=== PATIENT | female | born 1995 | race Caucasian/White ===

== ENCOUNTER → 2017-04-15 | Outpatient (CLI) | payer BC ==
[~2017-04-15] MED LIST: PRENTAB26 PO
== END | disposition home or self-care (01) ==
LOC: C.LAB1850 16:33
PROVIDERS: ATTEND Physician Assistant
DX: Z01.419 Encounter for gynecological examination (general) (routine) without abnormal findings (principal); N91.2 Amenorrhea, unspecified

== ENCOUNTER → 2017-04-15 | Outpatient (CLI) | payer BC | END | disposition home or self-care (01) | LOC: C.PAPS 17:38 | PROVIDERS: ATTEND Physician Assistant | DX: Z01.411 Encounter for gynecological examination (general) (routine) with abnormal findings (principal); R87.610 Atypical squamous cells of undetermined significance on cytologic smear of cervix (ASC-US) ==

== ENCOUNTER → 2017-05-06 | Outpatient (CLI) | payer BC | END | disposition home or self-care (01) | LOC: C.LABMFLN 14:24 | PROVIDERS: ATTEND Physician Assistant | DX: N91.2 Amenorrhea, unspecified (principal) ==

== ENCOUNTER → 2017-07-13 | Outpatient (CLI) | payer BC ==
[2017-07-13 18:03] LABS: FOLLICLE STIMULAT HORMONE 4.92 IU/L; PROLACTIN 9.55 ng/mL
== END | disposition home or self-care (01) ==
LOC: C.LAB1850 16:42
PROVIDERS: ATTEND Obstetrics & Gynecology
DX: N91.2 Amenorrhea, unspecified (principal)

== ENCOUNTER → 2017-10-27 | Outpatient (CLI) | payer BC | END | disposition home or self-care (01) | LOC: C.LABSPEC 10:43 | PROVIDERS: ATTEND Obstetrics & Gynecology | DX: Z34.81 Encounter for supervision of other normal pregnancy, first trimester (principal) ==

== ENCOUNTER → 2017-11-02 | Outpatient (CLI) | payer BC ==
[2017-11-02 16:59] LABS: BASO % 0.2 %; BASO ABS # 0.02 K/uL (0-0.2); EOS % 1.1 %; EOS ABS # 0.09 K/uL (0-0.5); HEMATOCRIT 42.7 % (37-47); HEMOGLOBIN 15.2 g/dL (12.0-16.0); IG# 0.02 K/uL (0.00-0.02); LYMPH % 31.6 %; LYMPH ABS # 2.65 K/uL (1.2-3.4); MEAN CORPUSCULAR HEMOGLOBIN 31.3 pg (25-34); MEAN CORPUSCULAR HGB CONC 35.6 g/dl (32-36); MEAN PLATELET VOLUME 11.1 fL (7.4-10.4); MONO ABS # 0.92 K/uL (0.11-0.59); NEUT % 55.9 %; NEUT ABS # 4.69 K/uL (1.4-6.5); PLATELET COUNT 276 K/uL (130-400); RED CELL DISTRIBUTION WIDTH CV 12.4 % (11.5-14.5); RED CELL DISTRIBUTION WIDTH SD 39.9 fL (36.4-46.3); WHITE BLOOD COUNT 8.39 K/uL (4.8-10.8)
== END | disposition home or self-care (01) ==
LOC: C.LAB1850 15:23
PROVIDERS: ATTEND Obstetrics & Gynecology
DX: Z34.81 Encounter for supervision of other normal pregnancy, first trimester (principal); Z3A.00 Weeks of gestation of pregnancy not specified

== ENCOUNTER 2018-06-22 13:29 | Inpatient (IN) ==
[2018-06-22] MEDS ORDERED: LACTATED RINGER'S 1,000 ML IV PRN ×3 (14:10→17:14)
[2018-06-22] MEDS ORDERED: OXYTOCIN 30 UNITS/500 ML BAG IV PRN ×3 (14:10→20:34)
[2018-06-22] MEDS ORDERED: LACTATED RINGER'S 1,000 ML IV SCH (14:15)
--- NOTE | 2018-06-22 14:16 | History & Physical Report ---
Date of Service June 22, 2018 Assessment & Plan (1) Supervision of normal intrauterine in multigravida in third t rimester: - tracing Cat 1 - active labor - anticipate History of Present Illness Chief Complaint: Labor check Primary Care Provider: Jennyfer Pierre MD The patient is a 22 you ; EDC 06/19/18 by 1st trimester U/S, at 40 (+) weeks GA, admitted for a labor check. Patient states her ctx's began at 0800, denies ROM, or vaginal bleeding. The patient has had a benign course. Her blood type is B(+). Ab (-), rubella immune, Hep Bneg, nml cfDNA, normal 1hr glucoal x2, (-) 3rd trimester B-Strep culture. Allergies Allergy/AdvReac Type Severity Reaction Status Date / Time No Known Allergies Allergy Unverified 10/03/14 02:38 Home Medications Home Medications Medication Instructions Recorded Confirmed Type Multivit/Min/Iron/Fol Ac/Pren 1 tab PO DAILY #0 tab 10/03/14 History ( Vitamin) Physical Exam Vital Signs (Past 24 Hours): Last Vital Signs Temp 36.9 C 06/22/18 13:34 Pulse 88 06/22/18 13:41 Resp 18 06/22/18 13:34 BP 134/84 06/22/18 13:41 Constitutional: WD/WN, vitals as above Respiratory: Auscultation: lungs clear to auscultation bilaterally Cardiovascular: RRR, no murmur, no edema Extremities: no calf tenderness Gastrointestinal (Abdomen): Gravid, vtx, (+) FHT's, efw 8 lbs Genitourinary: Manual OB Exam: + cervical dilation 4 cm, + cervical effacement 80% and + station -2
[2018-06-22 14:38] LABS: Hematocrit (blood only) 33.7 % (37-47); Hemoglobin 11.2 g/dL (12.0-16.0); Mean Platelet Volume 11.4 fL (7.4-10.4); Platelet Count 190 K/uL (130-400); RDW Coefficient of Variation 14.5 % (11.5-14.5); RDW Standard Deviation 44.3 fL (36.4-46.3); Red Blood Count 4.01 M/uL (4.2-5.4)
[2018-06-22 14:45] LABS: Mean Corpuscular Hgb Conc 33.2 g/dL (32-36)
--- NOTE | 2018-06-22 15:22 | Obstetrical Progress Note ---
Date of Service June 22, 2018 Assessment & Plan (1) Supervision of normal intrauterine in multigravida in third t rimester: - tracing Cat II - will monitor for cervical change after AROM - may need pitocin Physical Exam Vital Signs (Past 24 Hours): Last Vital Signs Temp 36.9 C 06/22/18 13:34 Pulse 88 06/22/18 13:47 Resp 18 06/22/18 13:34 BP 134/84 06/22/18 13:47 Genitourinary: Manual OB Exam: + cervical dilation, + cervical effacement, + station and + amniotic fluid (AROM, clear)
[2018-06-22] MEDS ORDERED: BUPIVACAINE 0.25% 30 ML VIAL ONE (16:21)
[2018-06-22] MEDS ORDERED: fentaNYL 2MCG/ML ROPIV 1.25MG/ML 100 ML BAG EPI ONE (16:22)
[2018-06-22] MEDS ORDERED: ePHEDrine sulfate 50 MG/ML AMP ONE (16:22)
--- NOTE | 2018-06-22 16:48 | Anesthesiology Consultation ---
Date of Service June 22, 2018 Assessment & Plan Chart Review Chart Review: Acceptable Risk for Labor Epidural Consults Requested none ASA ASA2 Proposed Anesthesia Anesthesia Type: Labor Epidural Risk / Benefits Reviewed With: PT / POA / Parent / Guardian, Accepts Plan and Informed Consent Obtained NPO Date Last Intake of Fluids: 06/22/18 Time Last Intake of Fluids: 09:00 Date Last Intake of Solids: 06/22/18 Time Last Intake of Solids: 09:00 History Height/Weight Height: 5 ft 4 in Weight: 97.522 kg Allergies Allergy/AdvReac Type Severity Reaction Status Date / Time No Known Allergies Allergy Unverified 10/03/14 02:38 Medications Home Medications Medication Instructions Recorded Confirmed Last Taken vit-iron fum-folic ac 1 tab PO DAILY 06/22/18 06/22/18 06/21/18 21:00 [ Vitamin] Active Medications Generic Name Dose Route Start Last Admin Trade Name Freq PRN Reason Stop Dose Admin Lactated Ringer's 1,000 mls @ 125 mls/hr 06/22/18 14:15 06/22/18 14:49 Lr IV 06/24/18 14:14 125 mls/hr .Q8H ANAYELI Administration Past Medical History Medical History Anemia GERD (gastroesophageal reflux disease) No known health problems Obese Past Family History Family History Other Diabetes mellitus, type 2 Hypertension Stroke Past Surgical History Surgical History No history of previous surgery Past Anesthesia History No Hx of Anesthesia Complications and No Family Hx of Anesthesia Complications History of PONV No Motion Sickness Screening History of Motion Sickness: No Social History Smoking Status: Never smoker Do You Dip or Chew Tobacco: No Hx Alcohol Use: No Hx Substance Use: No Exercise / Class Metabolic Activity II 4-5 Yardwork/Stairs/Walk up hill Physical Exam Vital Signs Last Vital Signs Temp 36.7 C 06/22/18 15:49 Pulse 83 06/22/18 16:42 Resp 18 06/22/18 15:49 BP 132/78 06/22/18 16:42 Pulse Ox 99 06/22/18 16:41 ENMT Mouth: no dentition abnormality Thyromental Distance: > or= 3.5 Finger Breadths Mallampati Class: II Neck normal visual inspection and trachea midline; neck extension not limited Respiratory normal respiratory effort Auscultation: lungs clear to auscultation bilaterally Cardiovascular Rate/Rhythm: regular rate and regular rhythm Heart Sounds: no murmur Musculoskeletal Spine: lumbar spine normal to inspection; normal cervical ROM Neurologic moves all extremities Motor/Sensory: no sensory deficit Psychiatric Orientation: alert and oriented x 3 Testing Laboratory Results 06/22/18 14:20
[2018-06-22] MEDS ORDERED: PROMETHAZINE HCL 25 MG in SODIUM CHLORIDE 0.9% 50 ML IV PRN (17:14)
[2018-06-22] MEDS ORDERED: NALOXONE HCL 1 MG in SODIUM CHLORIDE 0.9% 1000ML 1,000 ML IV PRN (17:14)
[2018-06-22] MEDS ORDERED: NALBUPHINE HCL INJ 10 MG/ML AMP IV PRN (17:14)
[2018-06-22] MEDS ORDERED: fentaNYL 2MCG/ML ROPIV 1.25MG/ML 100 ML BAG EPI PRN (17:14)
[2018-06-22] MEDS ORDERED: DiphenhydrAMINE HCL 50 MG/ML VIAL IV PRN (17:14)
[2018-06-22] MEDS ORDERED: NALOXONE HCL 0.4 MG/1 ML VIAL/CARP IV PRN (17:14)
[2018-06-22] MEDS ORDERED: ONDANSETRON INJ 2 MG/ML 2 ML VIAL IV PRN (17:14)
[2018-06-22] MEDS ORDERED: ePHEDrine sulfate 50 MG/ML AMP IV PRN (17:14)
[2018-06-22] MEDS: fentaNYL citrate 100 MCG/2 ML VIAL ONE ×2 (17:16→17:19)
--- NOTE | 2018-06-22 17:23 | Obstetrical Progress Note ---
Date of Service June 22, 2018 Assessment & Plan (1) Supervision of normal intrauterine in multigravida in third t rimester: - tracing Cat II - patient comfortable with epidural - will start pitocin of arrest of diliation Subjective comfortable with epidural Physical Exam Vital Signs (Past 24 Hours): Last Vital Signs Temp 36.7 C 06/22/18 15:49 Pulse 90 06/22/18 17:20 Resp 18 06/22/18 15:49 BP 113/64 06/22/18 17:20 Pulse Ox 98 06/22/18 17:16 Genitourinary: Manual OB Exam: + cervical dilation, + cervical effacement and + station
--- NOTE | 2018-06-22 20:32 | Anesthesia Procedure Note ---
Date of Service June 22, 2018 Anesthesia Post Epidural Note Vital Signs Vital Signs: Temp Pulse Resp BP Pulse Ox 36.9 C 96 H 18 137/79 100 06/22/18 17:30 06/22/18 20:30 06/22/18 19:45 06/22/18 20:30 06/22/18 19:41 Notes Mental Status: alert / awake / arousable Nausea / Vomiting: adequately controlled Pain: adequately controlled Airway Patency, RR, SpO2: stable & adequate BP & HR: stable & adequate Hydration State: stable & adequate Neuraxial Anesthesia: was administered Anesthetic Complications: no major complications apparent Epidural: Removed without complications and With tip intact
[2018-06-22] MEDS ORDERED: DIPHTHERIA/TETANUS/PERTUSSIS 0.5 ML SYR/VIAL IM ONE (20:34)
[2018-06-22] MEDS ORDERED: BENZOCAINE 20% AER SPR 82.5 GM CAN EXT PRN (20:34)
[2018-06-22] MEDS ORDERED: HYDROCORTISONE ACETATE 25 MG SUPP PR PRN (20:34)
[2018-06-22] MEDS ORDERED: ACETAMINOPHEN 325 MG TAB PO PRN (20:34)
[2018-06-22] MEDS ORDERED: SUPERCREAM 0.870% 15 GM JAR EXT PRN (20:34)
[2018-06-23] MEDS: IBUPROFEN 600 MG TAB PO PRN ×3 (03:49→19:32)
--- NOTE | 2018-06-23 03:54 | Delivery Summary ---
DATE OF OPERATION: 06/22/2018 FINDINGS: Viable male with Apgars of 8 and 9. Baby delivered spontaneously over intact perineum. Cord blood samples obtained. Placenta delivered spontaneously. Estimated blood loss 300 mL. LABOR NOTE: The patient is a 22-year-old 3, para 1 with an EDC of June 19 by first trimester ultrasound who presented at 40+ weeks gestational age for labor check. The patient states her contractions began at 0800 hours on day of delivery, she denied rupture of membranes or vaginal bleeding. The patient had a benign course. Her blood type is B positive, antibody negative, rubella immune, hepatitis B negative. She had normal cell-free DNA screening, she had a normal 1-hour Glucola x2, and a negative third trimester beta strep culture. Upon admission, patient was 4 cm dilated, 80% effaced, and -2 station. Tracing was category 1. The patient was dolores regularly with a bulging bag. After placement of the IV, the patient had artificial rupture of membranes for clear fluid. Contractions increased in intensity. Anesthesia was consulted and an epidural was placed. After the epidural, the patient arrested in dilatation and Pitocin augmentation was initiated. She progressed to full dilatation and began her second stage. She pushed for approximately 5 minutes delivering the viable male infant. Cord was clamped and cut. Cord blood samples obtained. Placenta delivered spontaneously. Inspection of the perineum was found to be intact. Sponge, needle count was correct. Estimated blood loss 300 mL. I attest to the content of the Intraoperative Record and any orders documented therein. Any exception s are noted below.
[2018-06-23] MEDS: ACETAMINOPHEN W/CODEINE #3 1 TAB PO PRN ×2 (06:37→14:35)
--- NOTE | 2018-06-23 06:49 | Obstetrical Progress Note ---
Date of Service <Alberto Lemus DO - Last Filed: 06/23/18 06:49> June 23, 2018 Assessment & Plan <Alberto Lemus DO - Last Filed: 06/23/18 06:49> (1) (spontaneous vaginal delivery): -vital signs reviewed and WNL -last Hgb 11.2 -Blood type: B+, GBS-, Rubella Immune -pt doing well clinically -encourage ambulation, monitor and control pain with motrin tylenol, cont regular diet, monitor lochia -cont encourage breast feeding <Randy Alvarez Jr, MD, FACOG - Last Filed: 06/23/18 07:11> (1) Supervision of normal intrauterine in multigravida in third trimester: Resident Physician Supervision Note: I was present with Dr. Lemus during the history and exam. I discussed the case with the resident and agree with the findings and plan as documented in the note. Any exceptions or clarifications are listed here: Routine care, doing well. Documented By: Randy Alvarez Jr, MD, FACOG Subjective <Alberto Lemus DO - Last Filed: 06/23/18 06:49> 22 y/o PPD1 found in bed this morning in NAD. Reports no acute overnight events. Pt states that she has no pain other than appropriate soreness. Tolerating PO intake without N/V. Able to ambulate without issue. She is breast feeding without issue. No issues with voiding, no BM yet. No other acute concerns or complaints. Review of Systems All systems reviewed & are unremarkable except as noted in HPI & below Physical Exam <Alberto Lemus DO - Last Filed: 06/23/18 06:49> Vital Signs (Past 24 Hours) Last Vital Signs Temp 36.5 C 06/23/18 03:55 Pulse 88 06/23/18 03:55 Resp 20 06/23/18 03:55 BP 127/87 06/23/18 03:55 Pulse Ox 98 06/23/18 03:55 Constitutional WD/WN, vitals as above Eyes PERRL, conjunctivae normal, anicteric sclerae ENMT external ear and nose normal, oropharynx normal Respiratory normal respiratory effort, lungs clear to auscultation Cardiovascular RRR, no murmur, no edema Gastrointestinal (Abdomen) mild abd tenderness Skin no rashes, warm and dry Psychiatric A+Ox3, euthymic affect Lymphatic no LE swelling, no calf tenderness Results & Data <Alberto Lemus DO - Last Filed: 06/23/18 06:49> Laboratory Results Laboratory Results - last 24 hr 06/22/18 14:20 WBC 10.80 RBC 4.01 L Hgb 11.2 L Hct 33.7 L MCV 84.0 MCH 27.9 MCHC 33.2 RDW Std Deviation 44.3 RDW Coeff of Skylar 14.5 Plt Count 190 MPV 11.4 H Medications Administered Current Inpatient Medications Acetaminophen (Tylenol) 650 mg PO Q6H PRN PRN Reason: Pain/AYALA/Fever Stop: 07/22/18 20:33 Acetaminophen/Codeine Phosphate (Tylenol W/Codeine #3) 1 - 2 tab PO Q4H PRN PRN Reason: Pain not controlled with... Stop: 07/22/18 20:33 Last Admin: 06/23/18 06:37 Dose: 1 tab Documented by: Benzocaine (Dermoplast Pain Relieving [place]) 1 appln EXT PRN PRN PRN Reason: Perineal Discomfort Stop: 07/22/18 20:33 Bisacodyl (Dulcolax) 5 mg PO 1999 [facility] Stop: 06/23/18 20:01 Cocaine HCl (Supercream 0.870%) 1 gm EXT BID PRN PRN Reason: Hemorrhoidal Inflammation Stop: 07/06/18 20:33 Docusate Sodium (Colace) 100 mg PO BID [facility] Stop: 07/22/18 20:59 Hydrocortisone (Anusol Hc) 25 mg [place] BID PRN PRN Reason: Hemorrhoidal Inflammation Stop: 07/22/18 20:33 Oxytocin (Pitocin) 30 units in 500 mls @ 333.333 mls/hr IV .Q1H30M PRN; Protocol PRN Reason: BLEEDING CONTROL Stop: 07/22/18 20:33 Ibuprofen (Motrin) 600 mg PO Q4H PRN PRN Reason: Pain/AYALA/Cramping/Fever Stop: 07/22/18 20:33 Last Admin: 06/23/18 03:49 Dose: 600 mg Documented by: Prenat Multivit/[place]/Iron/Folic Ac ( Vitamin) 1 tab PO QAM ANAYELI Stop: 07/23/18 08:59 Resident Activity Tracking <Alberto Lemus, - Last Filed: 06/23/18 06:49> Resident Involvement: Resident Care Provided Care Provided: OB Delivery
[2018-06-23] MEDS: DOCUSATE SODIUM 100 MG CAP PO SCH ×2 (09:11→19:32)
[2018-06-23] MEDS: PRENATAL VITAMIN 1 TAB PO SCH (09:12)
[2018-06-23] MEDS ORDERED: BISACODYL 5 MG TABEC PO SCH (20:00)
[2018-06-24] MEDS: IBUPROFEN 600 MG TAB PO PRN (06:20)
--- NOTE | 2018-06-24 06:27 | Obstetrical Progress Note ---
Date of Service June 24, 2018 Assessment & Plan (1) (spontaneous vaginal delivery): -vital signs reviewed and WNL -last Hgb 11.2 -Blood type: B+, GBS-, Rubella Immune -pt doing well clinically -encourage ambulation, monitor and control pain with motrin tylenol, cont regular diet, monitor lochia -cont encourage breast feeding -plan for d/c today Subjective 22 y/o PPD2 found in bed this morning in NAD. Reports no acute overnight events. Pt states that she has no pain other than appropriate soreness. Tolerating PO intake without N/V. Able to ambulate without issue. She is breast and bottle feeding without issue. No issues with voiding, no BM yet. No other acute concerns or complaints. Pt ok with plan for d/c today. Review of Systems All systems reviewed & are unremarkable except as noted in HPI & below Physical Exam Vital Signs (Past 24 Hours) Last Vital Signs Temp 36.7 C 06/23/18 22:45 Pulse 77 06/23/18 22:45 Resp 16 06/23/18 22:45 BP 123/80 06/23/18 22:45 Pulse Ox 99 06/23/18 19:30 Constitutional WD/WN, vitals as above Eyes PERRL, conjunctivae normal, anicteric sclerae ENMT external ear and nose normal, oropharynx normal Respiratory normal respiratory effort, lungs clear to auscultation Cardiovascular RRR, no murmur, no edema Gastrointestinal (Abdomen) mild abd tenderness Skin no rashes, warm and dry Psychiatric A+Ox3, euthymic affect Lymphatic no LE swelling, no calf tenderness Results & Data Medications Administered Current Inpatient Medications Acetaminophen (Tylenol) 650 mg PO Q6H PRN PRN Reason: Pain/AYALA/Fever Stop: 07/22/18 20:33 Acetaminophen/Codeine Phosphate (Tylenol W/Codeine #3) 1 - 2 tab PO Q4H PRN PRN Reason: Pain not controlled with... Stop: 07/22/18 20:33 Last Admin: 06/23/18 14:35 Dose: 1 tab Documented by: Benzocaine (Dermoplast Pain Relieving [place]) 1 appln EXT PRN PRN PRN Reason: Perineal Discomfort Stop: 07/22/18 20:33 Cocaine HCl (Supercream 0.870%) 1 gm EXT BID PRN PRN Reason: Hemorrhoidal Inflammation Stop: 07/06/18 20:33 Docusate Sodium (Colace) 100 mg PO BID ANAYELI Stop: 07/22/18 20:59 Last Admin: 06/23/18 19:32 Dose: 100 mg Documented by: Hydrocortisone (Anusol Hc) 25 mg [place] BID PRN PRN Reason: Hemorrhoidal Inflammation Stop: 07/22/18 20:33 Oxytocin (Pitocin) 30 units in 500 mls @ 333.333 mls/hr IV .Q1H30M PRN; Protocol PRN Reason: BLEEDING CONTROL Stop: 07/22/18 20:33 Ibuprofen (Motrin) 600 mg PO Q4H PRN PRN Reason: Pain/AYALA/Cramping/Fever Stop: 07/22/18 20:33 Last Admin: 06/24/18 06:20 Dose: 600 mg Documented by: Prenat Multivit/[place]/Iron/Folic Ac ( Vitamin) 1 tab PO QAM ANAYELI Stop: 07/23/18 08:59 Last Admin: 06/23/18 09:12 Dose: 1 tab Documented by: Resident Activity Tracking Resident Involvement: Resident Care Provided Care Provided: OB Delivery
[2018-06-24 07:05] LABS: Hematocrit (blood only) 32.3 % (37-47); Hemoglobin 10.4 g/dL (12.0-16.0)
[2018-06-24] MEDS: PRENATAL VITAMIN 1 TAB PO SCH (09:00)
[2018-06-24] MEDS: DOCUSATE SODIUM 100 MG CAP PO SCH (09:00)
== END 2018-06-24 14:00 | disposition home or self-care (01) | DRG 807 ==
LOC: OPB 13:29 → 4S1 13:32 → 4S2 06-23 02:27